=== PATIENT | female | born 2000 | race Caucasian/White ===

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

== ENCOUNTER 2021-01-02 15:42 | Emergency (ER) | payer OTHER ==
[~2021-01-02] VITALS: Ht 165.1 cm; Wt 76.7 kg
[2021-01-02 17:19] LABS: BASO % 0.3 % (0.0-1.0); EOS # 0.1 10^3/uL (0.0-0.5); EOS % 0.8 % (0.0-3.0); HEMATOCRIT 42.4 % (36.0-47.0); HEMOGLOBIN 14.2 g/dl (12.0-15.5); LYMPH # 2.2 10^3/uL (1.5-5.0); LYMPH % 34.5 % (24.0-44.0); MEAN CORPUSCULAR HEMOGLOBIN 28.6 pg (27.0-33.0); MEAN CORPUSCULAR HGB CONC 33.5 g/dl (32.0-36.5); MEAN CORPUSCULAR VOLUME 85.3 fl (80.0-96.0); MONO % 15.5 % (2.0-8.0); NEUTROPHILS # 3.2 10^3/uL (1.5-8.5); NEUTROPHILS % 48.6 % (36.0-66.0); PLATELET COUNT, AUTOMATED 262 10^3/uL (150-450); RED BLOOD COUNT 4.97 10^6/uL (4.00-5.40); WHITE BLOOD COUNT 6.5 10^3/uL (4.0-10.0)
[2021-01-02 17:48] LABS: BILIRUBIN,DIRECT 0.1 MG/DL (0.0-0.2); BILIRUBIN,TOTAL 0.3 MG/DL (0.2-1.0); TOTAL PROTEIN 7.8 GM/DL (6.4-8.2)
[2021-01-02] MEDS ORDERED: ISOVUE-370 76% 100ML VIAL As Ordered ONE (18:42)
--- NOTE | 2021-01-02 20:05 | REPVR ---
PROCEDURE INFORMATION: Exam: CT Abdomen And Pelvis With Contrast Exam date and time: 01/02/2021 6:44 PM Age: 20 years old Clinical indication: Abdominal pain; Localized; Right lower quadrant (rlq); Additional info: Rlq pain, loss of appetite TECHNIQUE: Imaging protocol: Computed tomography of the abdomen and pelvis with contrast. Axial, coronal and sagittal reformatted images were created and reviewed. Radiation optimization: All CT scans at this facility use at least one of these dose optimization techniques: automated exposure control; mA and/or kV adjustment per patient size (includes targeted exams where dose is matched to clinical indication); or iterative reconstruction. Contrast material: ISOVUE 370; Contrast volume: 100 ml; Contrast route: INTRAVENOUS (IV); COMPARISON: No relevant prior studies available. FINDINGS: Liver: Unremarkable. Gallbladder and bile ducts: No radiodense gallstones. No biliary ductal dilatation. Pancreas: Unremarkable. Spleen: Unremarkable. Adrenal glands: Normal. No mass. Kidneys and ureters: No mass. No radiodense calculi. No hydronephrosis. Stomach and bowel: No bowel wall thickening. No obstruction. No pneumatosis. Appendix: Normal. Intraperitoneal space: Trace nonspecific free pelvic fluid, likely physiologic. No organized fluid collection. No free air. Vasculature: Unremarkable. No aneurysm. Lymph nodes: Small mesenteric lymph nodes, nonspecific in appearance. No pathologically enlarged lymph nodes. Urinary bladder: Unremarkable as visualized. Reproductive: 4.2 x 3.3 cm left adnexal cystic lesion. Probable involuting right ovarian corpus luteal cyst. Bones/joints: No acute osseous abnormality. Soft tissues: Unremarkable. IMPRESSION: 1. 4.2 x 3.3 cm left adnexal cystic lesion. If clinically indicated, pelvic ultrasound may be obtained for further evaluation. 2. Additional findings, as above. Electronically signed by: Vipul Luu On 01/02/2021 20:04:39 PM
[2021-01-02 20:58] VITALS: BP 128/72
== END 2021-01-02 21:11 | disposition home or self-care (01) ==
LOC: M ED 15:42
DX: N83.292 Other ovarian cyst, left side (principal); R10.9 Unspecified abdominal pain; R19.7 Diarrhea, unspecified
CPT/HCPCS: 74177; 80047; 80076; 81001; 83690; 84702; 85025; 87086; 99284; Q9967

== ENCOUNTER → 2021-01-23 | Outpatient (CLI) | payer OTHER ==
--- NOTE | 2021-01-23 18:39 | REP ---
INDICATION: LEFT OVARIAN CYST. COMPARISON: CT 01/02/2021. TECHNIQUE: Transabdominal and transvaginal scanning performed. FINDINGS: Uterine dimensions are 7.6 x 3.7 x 4.8 cm. Endometrial echo is 6 mm in AP dimension and centrally placed. The bladder measures 9.1 x 7.1 x 10.7cm. The right ovary has dimensions of 2.6 x 1.6 x 3.1 cm. It's Doppler flow is normal with a resistive index of 0.63. The left ovary dimensions are 2.2 x 1.4 x 1.7 cm. It's Doppler flow was normal with resistive index of 0.55. There is an exophytic simple anechoic cyst of the left ovary 3.4 x 3.9 x 2.6 cm. No free fluid is seen in the cul-de-sac. IMPRESSION: Exophytic simple anechoic cyst of the left ovary 3.4 x 3.9 x 2.6 cm. <Electronically signed by Roverto Rivas > 01/23/21 [id number]
== END ==
LOC: M RAD 14:44
PROVIDERS: ATTEND Nurse Practitioner Women's Health
DX: N83.292 Other ovarian cyst, left side (principal)

== ENCOUNTER 2022-04-02 06:15 | Emergency (ER) | payer OTHER ==
[~2022-04-02] VITALS: Ht 165.1 cm; Wt 83.4 kg
[2022-04-02] MEDS ORDERED: ONDANSETRON 4MG 2ML VIAL IV ONE (08:50)
[2022-04-02] MEDS ORDERED: KETOROLAC 30 MG/ML 1ML VIAL IV ONE ×2 (08:50→10:30)
[2022-04-02] MEDS ORDERED: NS 1,000 ML IV ONE (08:50)
[2022-04-02 09:09] LABS: LIPASE 29 U/L (12-53)
[2022-04-02 09:11] LABS: ALBUMIN 3.8 G/DL (3.2-5.2); ALKALINE PHOSPHATASE 94 U/L (46-116); ALT/SGPT 15 U/L (7.0-40); AST/SGOT 17 U/L (<34); BILIRUBIN,DIRECT 0.1 MG/DL (<0.4); BILIRUBIN,TOTAL 0.3 MG/DL (0.3-1.2); BLOOD UREA NITROGEN 9 MG/DL (9-23); CALCIUM LEVEL 9.2 MG/DL (8.5-10.1); CARBON DIOXIDE LEVEL 22 MMOL/L (20-31); CHLORIDE LEVEL 105 MMOL/L (98-107); CREATININE FOR GFR 0.58 MG/DL (0.55-1.30); GLOMERULAR FILTRATION RATE > 60.0 (>60); GLUCOSE, FASTING 126 MG/DL (60-100); POTASSIUM SERUM 3.6 MMOL/L (3.5-5.1); SODIUM LEVEL 140 MMOL/L (136-145)
[2022-04-02 09:13] LABS: BASO % 0.1 % (0.0-1.0); EOS % 0.1 % (0.0-3.0); HEMATOCRIT 40.2 % (36.0-47.0); HEMOGLOBIN 13.2 g/dl (12.0-15.5); LYMPH # 1.4 10^3/uL (1.5-5.0); LYMPH % 10.1 % (24.0-44.0); MEAN CORPUSCULAR HEMOGLOBIN 28.3 pg (27.0-33.0); MEAN CORPUSCULAR HGB CONC 32.8 g/dl (32.0-36.5); MEAN CORPUSCULAR VOLUME 86.3 fl (80.0-96.0); MONO # 0.7 10^3/uL (0.0-0.8); MONO % 4.7 % (2.0-8.0); PLATELET COUNT, AUTOMATED 317 10^3/uL (150-450); RED BLOOD COUNT 4.66 10^6/uL (4.00-5.40); WHITE BLOOD COUNT 14.3 10^3/uL (4.0-10.0)
[2022-04-02 09:19] LABS: ERYTHROCYTE SEDIMENTATION RATE 13 mm/hr (0-20)
[2022-04-02 10:10] LABS: RSV AMPLIFICATION NEGATIVE (NEGATIVE)
[2022-04-02] MEDS ORDERED: ISOVUE-370 76% 100ML VIAL As Ordered ONE (10:10)
[2022-04-02 10:35] LABS: GC DNA AMPLIFICATION NEGATIVE (NEGATIVE)
[2022-04-02] MEDS ORDERED: MORPHINE 2 MG/ML 1ML VIAL IV ONE (10:35)
[2022-04-02] MEDS ORDERED: ONDA4TAB6 PO (10:56)
[2022-04-02 11:19] VITALS: BP 156/81
[2022-04-02 11:53] LABS: C REACTIVE PROTEIN QUANTITATIV < 0.40 MG/DL (<1.0)
== END 2022-04-02 11:44 | disposition home or self-care (01) ==
LOC: M ED 06:15
DX: N83.292 Other ovarian cyst, left side (principal); K52.29 Other allergic and dietetic gastroenteritis and colitis
CPT/HCPCS: 74177; 76830; 76856; 80048; 80076; 81000; 81015; 83605; 83690; 84702; 85025; 85652; 86140; 87631; 87661; 87810; 87850; 93976; 96361; 96374; 96375; 96376; 99283; J2405

== ENCOUNTER → 2023-06-24 | Outpatient (REF) | payer OTHER ==
[~2023-06-24] MED LIST: ONDA4TAB6 PO
== END ==
LOC: M SFHCWAGY 10:51
PROVIDERS: ATTEND Nurse Practitioner Family
DX: Z12.4 Encounter for screening for malignant neoplasm of cervix (principal)

== ENCOUNTER → 2024-11-24 | Outpatient (REF) | payer OTHER ==
[~2024-11-24] MED LIST changes: +ONDA-282 PO; -ONDA4TAB6 PO
[2024-11-24 18:18] LABS: APPEARANCE, URINE CLEAR (CLEAR); BACTERIA, URINE AUTO NEGATIVE (NEGATIVE); BILIRUBIN, URINE AUTO NEGATIVE (NEGATIVE); BLOOD, URINE BLOOD NEGATIVE (NEGATIVE); GLUCOSE, URINE (UA) AUTO NEGATIVE (NEGATIVE); KETONE, URINE AUTO NEGATIVE (NEGATIVE); LEUKOCYTE ESTERASE, URINE AUTO NEGATIVE (NEGATIVE); MUCUS, URINE SMALL (NEGATIVE); NITRITE, URINE AUTO NEGATIVE (NEGATIVE); PROTEIN, URINE AUTO NEGATIVE (NEGATIVE); RBC, URINE AUTO 0 /HPF (0-3); SPECIFIC GRAVITY URINE AUTO 1.023 (1.002-1.035); SQUAMOUS EPITHELIAL CELL UR AU 1 /HPF (0-6); UROBILINOGEN, URINE AUTO 0.2 mg/dL (0.0-2.0); WBC, URINE AUTO 3 /HPF (0-3)
== END ==
LOC: M SMT 16:56
PROVIDERS: ATTEND Nurse Practitioner Family
DX: Z87.448 Personal history of other diseases of urinary system (principal)